=== PATIENT | female | born 1945 | race Caucasian/White ===

== ENCOUNTER 2021-11-26 10:05 | Outpatient (CLI) | payer MEDICARE, BC | END 2021-11-26 10:06 | disposition home or self-care (01) | LOC: CSHMAMMO 10:05 | PROVIDERS: ATTEND Obstetrics & Gynecology | DX: Z12.31 Encounter for screening mammogram for malignant neoplasm of breast (principal) | CPT/HCPCS: 77063; 77067 ==

== ENCOUNTER 2022-11-30 10:03 | Outpatient (CLI) | payer MEDICARE, BC | END 2022-11-30 10:04 | disposition home or self-care (01) | LOC: CSHMAMMO 10:03 | PROVIDERS: ATTEND Obstetrics & Gynecology | DX: Z12.31 Encounter for screening mammogram for malignant neoplasm of breast (principal) | CPT/HCPCS: 77063; 77067 ==

== ENCOUNTER 2023-12-02 12:47 | Outpatient (CLI) | payer MEDICARE, BC | END 2023-12-02 12:48 | disposition home or self-care (01) | LOC: CSHMAMMO 12:47 | PROVIDERS: ATTEND Obstetrics & Gynecology | DX: Z12.31 Encounter for screening mammogram for malignant neoplasm of breast (principal) | CPT/HCPCS: 77063; 77067 ==

== ENCOUNTER 2024-12-04 10:11 | Outpatient (CLI) | payer MEDICARE, BC | END 2024-12-04 10:12 | disposition home or self-care (01) | LOC: CSHMAMMO 10:11 | PROVIDERS: ATTEND Family Medicine | DX: Z12.31 Encounter for screening mammogram for malignant neoplasm of breast (principal) | CPT/HCPCS: 77063; 77067 ==